=== PATIENT | female | born 1995 | race Two or more races ===

== ENCOUNTER → 2019-03-06 | Emergency (ER) | payer MEDICAID ==
[~2019-03-06] VITALS: Ht 160 cm; Wt 54.4 kg
[2019-03-06 19:00] VITALS: BP 134/81
== END | disposition left against medical advice (07) ==
LOC: ER 18:41
DX: R51 Headache (principal); M54.2 Cervicalgia; Z32.02 Encounter for pregnancy test, result negative; Z53.21 Procedure and treatment not carried out due to patient leaving prior to being seen by health care provider
CPT/HCPCS: 81025